=== PATIENT | male | born 1985 | race African-American/Black ===

== ENCOUNTER 2019-06-30 04:16 | Emergency (ER) | payer OTHER ==
[~2019-06-30] VITALS: Ht 188 cm; Wt 81.6 kg
[2019-06-30 06:37] LABS: Albumin 4.2 g/dL (3.4-5.0); Anion Gap 4 (5-15); Blood Urea Nitrogen 9 mg/dL (7-18); Calcium 8.6 mg/dL (8.5-10.1); Carbon Dioxide 28 mmol/L (21-32); Chloride 110 mmol/L (98-107); Glucose 71 mg/dL (74-106); Potassium 3.9 mmol/L (3.5-5.1); Sodium 142 mmol/L (136-145)
[2019-06-30 06:39] LABS: Basophils # (auto) 0 uL; Basophils % (auto) 0.5 % (0.0-2.0); Eosinophils # (auto) 0.1 uL; Eosinophils % (auto) 1.2 % (0.0-7.0); Hematocrit 46.3 % (41.0-53.0); Hemoglobin 16.2 g/dL (13.5-17.5); Lymphocytes # (auto) 1.3 uL; Mean Corpuscular Hemoglobin 30.8 pg (28.0-32.0); Mean Corpuscular Volume 88.1 fL (80.0-100.0); Monocytes # (auto) 0.3 uL; Monocytes % (auto) 6.3 % (0.0-12.0); Neutrophils # (auto) 2.9 uL; Nucleated Red Blood Cells % 0.1 %; Platelet Count (auto) 116 10^3/uL (140-450); Red Blood Cells 5.26 10^6/uL (4.5-5.90); White Blood Cell 4.5 10^3/uL (4.4-10.8)
[2019-06-30 06:43] LABS: Alanine Aminotransferase 12 U/L (16-61); Alkaline Phosphatase 63 U/L (45-117); Aspartate Aminotransferase 14 U/L (15-37); BUN/Creatinine Ratio 9.3; Bilirubin, Total 1.4 mg/dL (0.2-1.0); GFR African American 114 mL/min; GFR Non-African American 94 mL/min; Total Protein 7.7 g/dL (6.4-8.2)
[2019-06-30 11:30] VITALS: BP 138/73
== END 2019-06-30 12:15 ==
LOC: ER 04:16 → EEVIPCON 04:16 → EDBD 04:16 → ER 12:15
DX: R07.89 Other chest pain (principal); F20.9 Schizophrenia, unspecified; R42 Dizziness and giddiness
CPT/HCPCS: 36415; 71046; 80053; 84484; 85025; 93005